=== PATIENT | female | born 1970 | race Caucasian/White ===

== ENCOUNTER 2018-09-16 06:34 | Day surgery (SDC) | payer OTHER ==
[~2018-09-16] VITALS: Ht 152.4 cm; Wt 81.6 kg
[2018-09-16] MEDS ORDERED: VITD1000 PO (07:41)
[2018-09-16] MEDS ORDERED: ATOR20TA PO (07:41)
[2018-09-16] MEDS ORDERED: LIDOCAINE 2% 100 MG/5 ML UJET TP ONE (08:04)
[2018-09-16] MEDS ORDERED: MIDAZOLAM 2 MG/2 ML VIAL ONE (08:04)
[2018-09-16] MEDS ORDERED: fentaNYL 0.05 MG/ML VIAL ONE (08:04)
== END 2018-09-16 10:00 | disposition home or self-care (01) ==
LOC: MDS 06:34 → MMU 06:36 → MDS 10:00
PROVIDERS: ATTEND Internal Medicine Gastroenterology
DX: D12.7 Benign neoplasm of rectosigmoid junction (principal); K44.9 Diaphragmatic hernia without obstruction or gangrene; Z90.49 Acquired absence of other specified parts of digestive tract; E78.5 Hyperlipidemia, unspecified; Z98.890 Other specified postprocedural states; Z79.899 Other long term (current) drug therapy; Z87.891 Personal history of nicotine dependence
CPT/HCPCS: 36415; 86677; J2250; J3010; J7030